=== PATIENT | male | born 1990 | race Caucasian/White ===

== ENCOUNTER 2023-02-24 20:12 | Emergency (ER) | payer MEDICAID, SELFPAY ==
[2023-02-24 20:16] VITALS: BP 147/98; PULSE 84; RESP 16; TEMP 37.1; O2SAT 100
--- NOTE | 2023-02-24 20:45 | DI.RAD_ITS ---
Exam(s) XR HAND RT COMPLETE EXAM: XR HAND RT COMPLETE CLINICAL HISTORY: pain. TECHNIQUE: 2D digital imaging was performed. COMPARISON: No exams were available for comparison FINDINGS: 3 views No evidence of fracture or dislocation or radiopaque foreign body. Bone density normal. No osseous lesions nor erosions. IMPRESSION: No significant osseous findings in the hand. DATA REPOSITORY: RADIATION DOSE DELIVERED:
--- NOTE | 2023-02-24 20:45 | DI.RAD_ITS ---
Exam(s) XR WRIST RT COMPL NAVICULAR EXAM: XR WRIST RT COMPL NAVICULAR CLINICAL HISTORY: pain. TECHNIQUE: 2D digital imaging was performed. COMPARISON: No exams were available for comparison FINDINGS: Four views No evidence of fracture or dislocation. No significant ulnar variance. Bone density normal. No oss eous lesions. No erosions nor degenerative changes. IMPRESSION: No significant osseous findings in the wrist. DATA REPOSITORY: RADIATION DOSE DELIVERED:
[2023-02-24] MEDS: Ketorolac 10 MG TAB PO (20:50)
--- NOTE | 2023-02-24 21:13 | DI.VRAD_ITS ---
PROCEDURE INFORMATION: Exam: XR Right Hand Exam date and time: 02/24/2023 8:58 PM Age: 32 years old Clinical indication: Injury or trauma; Fall; Blunt trauma (contusions or hematomas); Hand; Right; Injury date: 02/24/23; Injury details: Pain TECHNIQUE: Imaging protocol: Radiologic exam of the right hand. Views: 3 or more views. COMPARISON: No relevant prior studies available. FINDINGS: Bones/joints: Bone mineralization is age-appropriate. There is no evidence of fracture. No evidence of dislocation. The joint spaces are adequately preserved; no significant degenerative narrowing and no bony erosion seen. Soft tissues: No radiopaque foreign body present. There is soft tissue swelling present. IMPRESSION: 1. No acute osseous abnormality. 2. There is soft tissue swelling present. Dictated and Authenticated by: Adam Jacinto MD. Ordering:JOHN Guy MD
--- NOTE | 2023-02-24 21:14 | DI.VRAD_ITS ---
PROCEDURE INFORMATION: Exam: XR Right Wrist Exam date and time: 02/24/2023 8:59 PM Age: 32 years old Clinical indication: Pain; Wrist; Right TECHNIQUE: Imaging protocol: Radiologic exam of the right wrist. Views: 3 or more views. COMPARISON: No relevant prior studies available. FINDINGS: Bones/joints: Bone mineralization is age-appropriate. There is no evidence of fracture. No evidence of dislocation. The joint spaces are adequately preserved; no significant degenerative narrowing and no bony erosion seen. Soft tissues: No radiopaque foreign body present. There is soft tissue swelling present. IMPRESSION: 1. No acute osseous abnormality. 2. There is soft tissue swelling present. Dictated and Authenticated by: Adam Jacinto MD. Ordering:JOHN Guy MD
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
== END 2023-02-24 22:02 | disposition home or self-care (01) ==
PROVIDERS: Emergency Provider Nurse Practitioner Family; PCP Nurse Practitioner Family
DX: M25.531 Pain in right wrist (principal); Z87.891 Personal history of nicotine dependence
CPT/HCPCS: 99283; 73110; 73130; 99282

== ENCOUNTER 2023-12-26 20:37 | Emergency (ER) | payer MEDICAID, SELFPAY ==
[2023-12-26] VITALS (36 sets, daily range): BP systolic 127–157; BP diastolic 89–104; PULSE 85; RESP 16; O2SAT 94–97
--- NOTE | 2023-12-26 20:30 | RT.EKG_ITS ---
APPROVED REPORT Exam: Resting ECG Reason for Exam: chest pain Patient Location: E HR:83 bpm ECG Measurements Heart Rate 83 AXIS [place] 120 P 64 QRSd 95 QRS 43 QT 362 T 43 QTc 425 Conclusion Sinus rhythm...normal P axis, V-rate 60- 99 ST elev, probable normal early repol pattern...ST elevation, age<55 Narrow complex normal sinus rhythm at a rate of 83. Normal axis. Intervals within normal limits. M ild upsloping elevation in V2. No T wave inversions. No prior for comparison. No acute injury marky sampson.
--- NOTE | 2023-12-26 21:15 | DI.RAD_ITS ---
Exam(s) XR CHEST 2V PA LATERAL EXAM: XR CHEST 2V PA LATERAL CLINICAL HISTORY: CP TECHNIQUE: 2D digital imaging was performed. Two views. COMPARISON: No exams were available for comparison FINDINGS: HEART: Normal size. Aorta: Not dilated. PULMONARY VASCULATURE: Normal. MEDIASTINUM: Unremarkable. LUNGS: Clear. PLEURAL SPACE: No pleural effusion or pneumothorax. BONE:Unremarkable for age. SOFT TISSUES: Unremarkable. IMPRESSION: No acute abnormality. DATA REPOSITORY: RADIATION DOSE DELIVERED:
[2023-12-26 21:37] LABS: Abs Immature Grans 0.02 10^3/uL (0.0-0.06); Absolute Basophil Count 0.04 10^3/uL (0.0-0.2); Absolute Eosinophil Count 0.43 10^3/uL (0.0-0.7); Absolute Lymphocyte Count 1.78 10^3/uL (1.2-3.4); Absolute Monocyte Count 0.77 10^3/uL (0.1-0.8); Absolute Neutrophil Count 3.39 10^3/uL (1.2-6.7); Basophils % 0.6 %; Eosinophils % 6.7 %; HCT 43.1 % (40.0-50.0); HGB 14.7 g/dL (13.5-17.5); Immature Grans % 0.3 %; Lymphocytes % 27.7 %; MCH 29.7 pg (27.0-33.0); MCHC 34.1 % (32.0-36.0); MCV 87 fL (80-95); Neutrophils % 52.7 %; Platelet Count 249 10^3/uL (130-400); RBC 4.95 10^6/uL (4.36-5.78); RDW 12.7 % (11.8-14.1); RDW-SD 40.1 fL; WBC 6.43 10^3/uL (4.4-10.8)
[2023-12-26] MEDS: Famotidine 20 MG/2 ML VIAL IVP (21:45)
[2023-12-26] MEDS: Aspirin 81 MG CHEW 324 MG CH (21:45)
[2023-12-26 21:55] LABS: ALT 46 U/L (16-63); AST 45 U/L (15-37); Albumin 3.8 g/dL (3.4-5.0); Alkaline Phosphatase 107 U/L (46-116); Anion Gap 9.5 mmol/L (3-11); BUN 11 mg/dL (7-18); Bilirubin, Total 0.37 mg/dL (0.2-1.0); CO2 28.5 mmol/L (21.0-32.0); CREATININE 1.1 mg/dL (0.70-1.30); Calcium 9.1 mg/dL (8.5-10.1); Chloride 104 mmol/L (98-107); Estimated GFR 89.78 (mL/min/1.73m2); Glucose 114 mg/dL (74-106); Magnesium 2.1 mg/dL (1.8-2.4); Potassium 3.7 mmol/L (3.5-5.1); Sodium 142 mmol/L (136-145); Total Protein 7.4 g/dL (6.4-8.2); Troponin I < 50 ng/L (< or =60)
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
--- NOTE | 2023-12-26 23:15 | DI.VRAD_ITS ---
PROCEDURE INFORMATION: Exam: XR Chest Exam date and time: 12/26/2023 9:55 PM Age: 33 years old Clinical indication: Chest wall pain TECHNIQUE: Imaging protocol: Radiologic exam of the chest. Views: 2 views. COMPARISON: No relevant prior studies available. FINDINGS: Lungs: Lungs are adequately inflated and symmetric. No focal consolidation or evidence of pulmonary edema. Pleural spaces: No pleural effusion. No pneumothorax. Heart/Mediastinum: Cardiomediastinal contours within normal limits. Bones/joints: No acute osseous finding. IMPRESSION: No acute findings. Dictated and Authenticated by: Sebastien Mcdermott MD. Ordering:ALF Swartz MD
--- NOTE | 2023-12-26 23:34 | W.EDPROG ---
Date of service: 12/26/23 Time of Service: 23:34 Medical Decision Making This patient was signed to me. Please see previous notes for H&P and initial eval. In brief, 33yo M presenting with chest pain. Workup thus far reassuring, symptoms improved after GI cocktail. Signed out pending delta troponin; if negative would discharge home. Troponin negative. On reassessment patient in no distress, reassuring vital signs. Discharged home; discharge instructions and return precautions were reviewed with patient who verbalized understanding. All questions were answered and he is in full agreement with the plan. Medical Records Medical records reviewed: Yes I reviewed the patient's medical records. Lab Data Lab results reviewed: Yes I reviewed the patient's lab results. Labs: Laboratory Tests Range/Units 12/26/23 12/27/23 21:32 00:39 WBC (4.4-10.8) 10^3/uL 6.43 RBC (4.36-5.78) 10^6/uL 4.95 Hgb (13.5-17.5) g/dL 14.7 Hct (40.0-50.0) % 43.1 MCV (80-95) fL 87 MCH (27.0-33.0) pg 29.7 MCHC (32.0-36.0) % 34.1 RDW (11.8-14.1) % 12.7 Plt Count (130-400) 10^3/uL 249 MPV (8.0-11.0) fL 9.0 Immature Gran % % 0.3 Neutrophils % % 52.7 Lymphocytes % % 27.7 Monocytes % % 12.0 Eosinophils % % 6.7 Basophils % % 0.6 Nucleated RBC % (0.0-0.3) % 0.0 Absolute Neutrophils (1.2-6.7) 10^3/uL 3.39 Absolute Lymphocytes (1.2-3.4) 10^3/uL 1.78 Absolute Monocytes (0.1-0.8) 10^3/uL 0.77 Absolute Eosinophils (0.0-0.7) 10^3/uL 0.43 Absolute Basophils (0.0-0.2) 10^3/uL 0.04 Sodium (136-145) mmol/L 142 Potassium (3.5-5.1) mmol/L 3.7 Chloride (98-107) mmol/L 104 Carbon Dioxide (21.0-32.0) mmol/L 28.5 Anion Gap (3-11) mmol/L 9.5 BUN (7-18) mg/dL 11 Creatinine (0.70-1.30) mg/dL 1.1 Est GFR (CKD-EPI 2020) (mL/min/1.73m2) 89.78 Glucose (74-106) mg/dL 114 H Calcium (8.5-10.1) mg/dL 9.1 Magnesium (1.8-2.4) mg/dL 2.1 Total Bilirubin (0.2-1.0) mg/dL 0.37 AST (15-37) U/L 45 H ALT (16-63) U/L 46 Alkaline Phosphatase (46-116) U/L 107 Troponin I (< or =60) ng/L < 50 < 50 Total Protein (6.4-8.2) g/dL 7.4 Albumin (3.4-5.0) g/dL 3.8 Quality:[facility] Health Related Social Needs: No Data to Display Sign Out Sign Out Data: Sign Out Comment: 33-year-old male presented to the emergency department after experiencing sternal chest tightness lasting approximately 10 to 15 minutes. Workup today reassuring, normal EKG and chest x-ray. Initial troponin negative. Symptoms fully resolved after GI cocktail and famotidine. Awaiting second troponin. Last updated by Sheridan Marques at 12/26/23 23:43 Discharge Plan Disposition Patient Disposition: Home Condition: Good Discharge Details Clinical Impression: Heartburn, Chest pain Primary Care Provider: Vince Lowery ED Provider: Irene Maloney Home Meds and New Rx's Prescriptions: Continued nicotine (polacrilex) [Nicorette] 2 mg gum 2 mg buccal Q2H Qty: 396 0RF Discharge Instructions Instructions: Chest Pain, Adult ED Additional Instructions: Call your primary care doctor on Friday to schedule an appointment for next week to follow up on your visit today. Return to the emergency department for new or worsening symptoms including new/different/worse chest pain, difficulty breathing, feeling like you are going to pass out, or if you have any other concerns.
[2023-12-27 01:11] LABS: Troponin I < 50 ng/L (< or =60)
[2023-12-27 02:17] VITALS: BP 118/65; PULSE 76; RESP 16; TEMP 36.6; O2SAT 96
== END 2023-12-27 02:17 | disposition home or self-care (01) ==
PROVIDERS: Nurse Practitioner Family; Emergency Provider Student in an Organized Health Care Education/Training Program; PCP Nurse Practitioner Family
DX: R12 Heartburn (principal); R06.02 Shortness of breath; R07.89 Other chest pain; F17.220 Nicotine dependence, chewing tobacco, uncomplicated
CPT/HCPCS: 00123; 80053; 93005; 99285; 71046; 83735; 84484; 85025; 93010; 99284

== ENCOUNTER 2025-03-21 19:35 | Outpatient (REF) | payer MEDICAID, SELFPAY ==
[2025-03-21 18:48] LABS: ALT 66 U/L (16-63); AST 27 U/L (15-37); Albumin 4.4 g/dL (3.4-5.0); Alkaline Phosphatase 100 U/L (46-116); Anion Gap 8.9 mmol/L (3-11); BUN 8 mg/dL (7-18); Bilirubin, Total 0.4 mg/dL (0.2-1.0); CO2 30.1 mmol/L (21.0-32.0); Calcium 9.6 mg/dL (8.5-10.1); Calculated LDL 242 mg/dL (<100); Chloride 101 mmol/L (98-107); Cholesterol 328 mg/dL (<200); Estimated GFR 100.03 (mL/min/1.73m2); Glucose 103 mg/dL (74-106); HDL Cholesterol 43 mg/dL (>or=40); Potassium 4.4 mmol/L (3.5-5.1); Sodium 140 mmol/L (136-145); Total Protein 7.6 g/dL (6.4-8.2); Triglyceride 216 mg/dL (<150)
[2025-03-23 10:39] LABS: HIV-1/2 Ag & Ab Screen Negative (Negative)
[2025-03-23 11:08] LABS: Hepatitis C Ab w Rflx HCV PCR Negative (Negative)
== END 2025-03-21 19:36 | disposition home or self-care (01) ==
LOC: LBN 19:35
PROVIDERS: PCP Nurse Practitioner Family; Visit Provider Nurse Practitioner Family
DX: Z13.220 Encounter for screening for lipoid disorders (principal); Z11.4 Encounter for screening for human immunodeficiency virus [HIV]; Z11.59 Encounter for screening for other viral diseases
CPT/HCPCS: 80053; 80061; 86803; 87389